=== PATIENT | male | born 1955 ===

== ENCOUNTER 2016-10-04 07:48 | Day surgery (SDC) | payer MEDICARE ==
[2016-10-04] MEDS ORDERED: Lactated Ringer's 500 ML IV ONE (08:20)
[2016-10-04 08:30] VITALS: BMI 27.2
[2016-10-04] MEDS ORDERED: Propofol 10 mg/ml Inj (20 ML) ONE (10:09)
[2016-10-04] MEDS ORDERED: Midazolam 2 MG/2 ML VIAL ONE (10:09)
[2016-10-04 10:58] VITALS: O2SAT 100
[2016-10-04 11:28] VITALS: BP 105/69; PULSE 65; RESP 16; TEMP 97.1
== END 2016-10-04 11:42 | disposition home or self-care (01) ==
LOC: H.ENDO 07:48
PROVIDERS: ATTEND Internal Medicine Gastroenterology
DX: Z12.11 Encounter for screening for malignant neoplasm of colon (principal); E78.5 Hyperlipidemia, unspecified; I10 Essential (primary) hypertension; K64.8 Other hemorrhoids; R12 Heartburn; K29.70 Gastritis, unspecified, without bleeding; K44.9 Diaphragmatic hernia without obstruction or gangrene
CPT/HCPCS: 43239; 45378; 88305; J2001; J2250; J2704; J7120